=== PATIENT | male | born 1990 | race Caucasian/White ===

== ENCOUNTER 2016-11-03 14:16 | Emergency (ER) | payer MEDICAID ==
--- NOTE | 2016-11-03 14:54 | C.PDOC ---
History Of Present Illness 26M c/o right ankle pain after he slipped on ice and twisted it 2 days ago. he says he felt a "popping" sensation. he says the pain is "not that bad but I just wanted to come get it checked out." he took some otc medication yesterday he is unsure what. Time Seen by Provider: 11/03/16 14:47 Chief Complaint (Nursing): Lower Extremity Problem/Injury Past Medical History Vital Signs: Last Vital Signs Temp 98.3 F 11/03/16 16:16 Pulse 91 H 11/03/16 16:16 Resp 18 11/03/16 16:16 BP 126/84 11/03/16 16:16 Pulse Ox 96 11/03/16 16:16 Family History: States: Other (nc) Review Of Systems Constitutional: Negative for: Fever, Malaise Cardiovascular: Negative for: Chest Pain Respiratory: Negative for: Shortness of Breath Gastrointestinal: Negative for: Vomiting Neurological: Negative for: Weakness, Numbness Physical Exam - Physical Exam Appears: Non-toxic, No Acute Distress Extremity: Normal ROM, No Deformity, No Swelling, Other (ttp mainly over lat mal and ATFL. nl strength and rom of ankle. no ttp of fib head or base 5th mt. ) Pulses: Right Dorsalis Pedis: Normal Neurological/Psych: Oriented x3, Normal Motor, Normal Sensation ED Course And Treatment O2 Sat by Pulse Oximetry: 98 - Other Rad X-Ray - Right Ankle X-Ray: Viewed By Me, Read By Radiologist Interpretation: PROCEDURE: Right Ankle Radiographs. HISTORY: twisted ankle, pain. COMPARISON: None available. FINDINGS: BONES: No acute displaced fracture. JOINTS: No dislocation. SOFT TISSUES: Mild soft tissue swelling. No evidence of radiopaque foreign body. OTHER FINDINGS: None. IMPRESSION: Mild soft tissue swelling. No acute displaced fracture, dislocation, or significant joint effusion identified. If symptoms persist or if there is clinical concern, x-ray follow-up in 7-10 days should be considered. Medical Decision Making Medical Decision Making: the pt denied need for olayinka wrap or crutches Disposition - Disposition Referrals: [facility] [Outside] Disposition: HOME/ ROUTINE Disposition Time: 16:09 Condition: GOOD Additional Instructions: Please follow up with your doctor in 1 week to have your ankle re-checked. Return to the ER for any worsening symptoms or for any other concerns. Prescriptions: Ibuprofen [Motrin Tab] 800 mg PO Q8H PRN #9 tab PRN Reason: Pain, Moderate (4-7) Instructions: Ankle Sprain (ED) Forms: General Discharge Instructions, Work Excuse - Clinical Impression Clinical Impression: Ankle sprain
--- NOTE | 2016-11-03 15:58 | RAD ---
PROCEDURE: Right Ankle Radiographs. HISTORY: twisted ankle, pain COMPARISON: None available. FINDINGS: BONES: No acute displaced fracture. JOINTS: No dislocation. SOFT TISSUES: Mild soft tissue swelling. No evidence of radiopaque foreign body. OTHER FINDINGS: None. IMPRESSION: Mild soft tissue swelling. No acute displaced fracture, dislocation, or significant joint effusion identified. If symptoms persist or if there is clinical concern, x-ray follow-up in 7-10 days should be considered.
[2016-11-03 16:17] VITALS: BP 126/84; PULSE 91; RESP 18; TEMP 98.3
[2016-11-04 13:28] VITALS: O2SAT 98
== END 2016-11-03 16:17 | disposition home or self-care (01) ==
LOC: C.ER 14:16
DX: S93.401A Sprain of unspecified ligament of right ankle, initial encounter (principal); W00.0XXA Fall on same level due to ice and snow, initial encounter; Y92.410 Unspecified street and highway as the place of occurrence of the external cause

== ENCOUNTER 2016-11-21 14:37 | Emergency (ER) | payer MEDICAID ==
[2016-11-21 14:54] VITALS: BP 125/79; PULSE 70; RESP 20; TEMP 98; O2SAT 100
--- NOTE | 2016-11-21 15:15 | C.PDOC ---
History Of Present Illness 26 year old male presents to ED for evaluation of past right ankle injury and for work clearance. Patient was seen at ED on 11/03/16 for right ankle injury, Xrays were negative and patient was discharged. Patient reports improvement of pain and has no further complaints at this time. Time Seen by Provider: 11/21/16 15:00 Chief Complaint (Nursing): Lower Extremity Problem/Injury History Per: Patient History/Exam Limitations: no limitations Onset/Duration Of Symptoms: Days Current Symptoms Are (Timing): Gone Severity: None Past Medical History Reviewed: Historical Data, Nursing Documentation, Vital Signs Vital Signs: Last Vital Signs Temp 98 F 11/21/16 14:52 Pulse 70 11/21/16 14:52 Resp 20 11/21/16 14:52 BP 125/79 11/21/16 14:52 Pulse Ox 100 11/21/16 15:47 Family History: States: No Known Family Hx - Social History Hx Alcohol Use: No Hx Substance Use: No - Immunization History Hx Tetanus Toxoid Vaccination: No Hx Influenza Vaccination: No Hx Pneumococcal Vaccination: No Review Of Systems Except As Marked, All Systems Reviewed And Found Negative. Constitutional: Negative for: Fever, Chills Respiratory: Negative for: Cough, Shortness of Breath Musculoskeletal: Negative for: Leg Pain, Foot Pain Physical Exam - Physical Exam Appears: Well, Non-toxic, No Acute Distress Skin: Normal Color, Warm Head: Atraumatic, Normacephalic Extremity: Normal ROM, No Tenderness, Capillary Refill (< 2 seconds ), No Deformity, No Swelling Neurological/Psych: Oriented x3, Normal Speech, Normal Cognition, Normal Motor, Normal Sensation ED Course And Treatment O2 Sat by Pulse Oximetry: 100 (Room Air) Pulse Ox Interpretation: Normal Medical Decision Making Medical Decision Making: Prior Visits: Notes and results from previous visits were reviewed. Progress Notes: On reassessment, patient is resting comfortably, and is in no acute distress. Patient instructed to follow up with clinic/PMD within 1-2 days. Disposition - Disposition Referrals: Clinic,Med Surg [Primary Care Provider] - Disposition: HOME/ ROUTINE Disposition Time: 15:15 Condition: STABLE Instructions: Arthralgia (ED) Forms: Work Excuse - POA Present On Arrival: None - Clinical Impression Clinical Impression: Ankle injury - PA / NUCLE[employer] MEDICINE SUPERVISOR / Resident Statement MD/DO has reviewed & agrees with the documentation as recorded. - Scribe Statement The provider has reviewed the documentation as recorded by the Scribe Patti Loo All medical record entries made by the Dainibkaushal were at my direction and personally dictated by me. I have reviewed the chart and agree that the record accurately reflects my personal performance of the history, physical exam, medical decision making, and the department course for this patient. I have also personally directed, reviewed, and agree with the discharge instructions and disposition.
== END 2016-11-21 15:16 | disposition home or self-care (01) ==
LOC: C.ER 14:37 → SUPCPDRO 14:37 → C.ER 15:16
DX: Z09 Encounter for follow-up examination after completed treatment for conditions other than malignant neoplasm (principal); Z87.828 Personal history of other (healed) physical injury and trauma